=== PATIENT | male | born 1980 | race Caucasian/White ===

== ENCOUNTER 2020-11-15 15:04 | Emergency (ER) | payer BC ==
[2020-11-15] MEDS ORDERED: LORazepam 2 MG/ML SDV IVPUSH ONE (15:28)
[2020-11-15] MEDS ORDERED: Ondansetron 4 MG/2 ML SDV IVPUSH ONE (15:29)
[2020-11-15] MEDS ORDERED: Sodium Chloride 0.9% 1,000 ML IV SCH (15:30)
--- NOTE | 2020-11-15 15:40 | EDM.PDOC ---
ED HPI GENERAL MEDICAL PROBLEM - General Chief Complaint: General Stated Complaint: MEDICAL VIA [facility] Time Seen by Provider: 11/15/20 15:08 Source of Information: Reports: Patient History Limitations: Reports: No Limitations - History of Present Illness INITIAL COMMENTS - FREE TEXT/NARRATIVE: 40 yo male presents to ER with lower extremity cramping, nausea and headache. He has been playing softball outside all day. began to fill ill this afternoon. He is thirsty. Feel hot but not sweating. generally healthy. Arrived via EMS Left Flank Pain Score (Numeric/FACES): 5 - Related Data Allergies Allergy/AdvReac Type Severity Reaction Status Date / Time No Known Allergies Allergy Verified 11/15/20 15:08 Home Meds: Home Meds Cholecalciferol (Vitamin D3) [Vitamin D] 5,000 unit PO DAILY 11/15/20 [History] Past Medical History - Past Health History Medical/Surgical History: Denies Medical/Surgical History Social & Family History - Tobacco Use Tobacco Use Status *Q: Unknown Ever Used Tobacco - Recreational Drug Use Recreational Drug Type: Reports: Marijuana/Hashish Recreational Drug Use Frequency: Daily ED ROS GENERAL - Review of Systems Review Of Systems: See Below Constitutional: Reports: Malaise. Denies: Fever Respiratory: Denies: Shortness of Breath, Wheezing Cardiovascular: Denies: Chest Pain GI/Abdominal: Reports: Abdominal Pain, Diarrhea, Nausea Skin: Denies: Rash Psychiatric: Reports: Anxiety ED EXAM, GENERAL - Physical Exam Exam: See Below Exam Limited By: No Limitations General Appearance: Alert, WD/WN, No Apparent Distress Neck: Normal Inspection, Supple, Non-Tender, Full Range of Motion. No: Lymphadenopathy (R), Lymphadenopathy (L) Cardiovascular: Regular Rate, Rhythm GI/Abdominal: Soft, Non-Tender Neurological: Alert, Oriented Psychiatric: Normal Affect, Normal Mood Course - Vital Signs Last Recorded V/S: Last Vital Signs Temp 36.7 C 11/15/20 15:11 Pulse 67 11/15/20 16:03 Resp 16 11/15/20 16:03 BP 118/68 11/15/20 16:03 Pulse Ox 97 11/15/20 16:03 - Orders/Labs/Meds Orders: Active Orders 24 hr Category Date Time Status Sodium Chloride 0.9% [Normal Saline] 1,000 ml Med 11/15/20 15:30 Active IV ASDIRECTED Medication Orders Sodium Chloride (Normal Saline) 1,000 mls @ 999 mls/hr IV ASDIRECTED UMAIR Last Admin: 11/15/20 15:43 Dose: 999 mls/hr Documented by: JATINDER Labs: Laboratory Tests 11/15/20 Range/Units 14:40 Sodium 145 (140-148) mmol/L Potassium 3.5 L (3.6-5.2) mmol/L Chloride 105 (100-108) mmol/L Carbon Dioxide 19 L (21-32) mmol/L Anion Gap 24.5 H (5.0-14.0) mmol/L BUN 19 H (7-18) mg/dL Creatinine 1.4 H (0.8-1.3) mg/dL Est Cr Clr Drug Dosing 71.54 mL/min Estimated GFR (MDRD) 57 L (>60) Glucose 86 (74-106) mg/dL Calcium 9.1 (8.5-10.1) mg/dL Meds: Medications Generic Name Dose Route Start Last Admin Trade Name Freq PRN Reason Stop Dose Admin Sodium Chloride 1,000 mls @ 999 mls/hr 11/15/20 15:30 11/15/20 15:43 Normal Saline IV 999 mls/hr ASDIRECTED UMAIR Administration Discontinued Medications Generic Name Dose Route Start Last Admin Trade Name Freq PRN Reason Stop Dose Admin Lorazepam 1 mg 11/15/20 15:28 11/15/20 15:34 Lorazepam 2 Mg/Ml Sdv IVPUSH 11/15/20 15:29 1 mg ONETIME ONE Administration Ondansetron HCl 4 mg 11/15/20 15:29 11/15/20 15:34 Ondansetron 4 Mg/2 Ml Sdv IVPUSH 11/15/20 15:30 4 mg ONETIME ONE Administration Potassium Chloride 20 meq 11/15/20 16:10 11/15/20 16:26 Potassium Chloride 20 Meq Tab.Er PO 11/15/20 16:11 20 meq ONETIME ONE Administration - Re-Assessments/Exams Free Text/Narrative Re-Assessment/Exam: 11/15/20 17:02 pt presented to ER via EMS with cramping, nausea and tingling in his fingers. cramps and finger tingling resolved with IV hydration and lorazepam. He is able to tolerate oral hydration. nausea resolved. Departure - Departure Time of Disposition: 17:04 Disposition: Home, Self-Care 01 Condition: Good Clinical Impression: Heat cramps Qualifiers: Encounter type: initial encounter Qualified Code(s): T67.2XXA - Heat cramp, initial encounter - Discharge Information *PRESCRIPTION DRUG MONITORING PROGRAM REVIEWED*: Not Applicable *COPY OF PRESCRIPTION DRUG MONITORING REPORT IN PATIENT SIMON: Not Applicable Instructions: Heat Illness-SportsMed Referrals: PCP,Unknown [Primary Care Provider] - Forms: ED Department Discharge Additional Instructions: rest in cool area the today and tomorrow increase fluid intake with goal of 2 liters per day utilize sports drink for some of the fluid intake Sepsis Event Note (ED) - Evaluation Sepsis Screening Result: No Definite Risk - Focused Exam Vital Signs: Vital Signs Temp Pulse Resp BP Pulse Ox 11/15/20 16:03 67 16 118/68 97 11/15/20 15:11 36.7 C 74 24 H 137/62 99 11/15/20 15:08 36.7 C 74 24 H 137/62 99 - My Orders Last 24 Hours: My Active Orders 11/15/20 15:30 Sodium Chloride 0.9% [Normal Saline] 1,000 ml IV ASDIRECTED - Assessment/Plan Last 24 Hours: My Active Orders 11/15/20 15:30 Sodium Chloride 0.9% [Normal Saline] 1,000 ml IV ASDIRECTED
[2020-11-15] MEDS ORDERED: Potassium Chloride 20 MEQ Tab.ER PO ONE (16:10)
== END 2020-11-15 17:49 | disposition home or self-care (01) ==
LOC: JP.ED 15:04
DX: T67.2XXA Heat cramp, initial encounter (principal)
CPT/HCPCS: 36415; 80048; 96374; 96375; 99284; A9270; J2060; J2405; J7030